=== PATIENT | male | born 1950 | race Caucasian/White ===

== ENCOUNTER 2019-06-21 21:29 | Observation (INO) ==
[2019-06-22 00:07] LABS: Prothrombin Time 11.1 Seconds (9.4-12.1)
[2019-06-22 00:08] LABS: BUN/Creatinine Ratio 23 (6-26); Blood Urea Nitrogen 25 mg/dL (8-23); Calcium 9.1 mg/dL (8.6-10.3); Carbon Dioxide 29 mEq/L (23-29); Chloride 102 mEq/L (98-107); Glucose 94 mg/dL (70-105); Osmolality,Calculated 288 (280-300); Sodium 137 mEq/L (136-145); eGFR For African Americans > 60 (> 60); eGFR For Non-African Americans > 60 (> 60)
[2019-06-22] MEDS ORDERED: *HR* Heparin 5,000 UNIT/ML VIAL IVP PRN ×2 (00:08)
[2019-06-22] MEDS ORDERED: *HR* Heparin 5,000 UNIT/ML VIAL IVP ONE (00:08)
[2019-06-22 00:10] LABS: Activated Partial Thrombo Time 32.6 Seconds (26.0-36.0)
[2019-06-22 00:11] LABS: Hematocrit 45.7 % (37.5-50.1); Hemoglobin 15.4 g/dL (12.9-16.9); Mean Corpuscular HGB Conc 33.7 g/dL (31.6-35.5); Mean Corpuscular Hemoglobin 33.3 pg (28.0-33.3); Mean Corpuscular Volume 98.7 fL (83.0-100.0); Platelet Count 148 K/mcL (140-400); Red Blood Count 4.63 M/mcL (4.19-5.50); Red Cell Distribution Width 12.4 % (11.5-14.5); White Blood Count 6.5 K/mcL (4.3-11.1)
--- NOTE | 2019-06-22 00:11 | Emergency Department Note ---
Disposition Clinical Impression: DVT (deep venous thrombosis) Qualifiers: DVT location: lower extremity Affected thrombotic vein of extremity: unspecified vein of extremity Chronicity: acute Laterality: left Qualified Code(s): I82.402 - Acute embolism and thrombosis of unspecified deep veins of left lower extremity Disposition: Admitted As Inpatient Condition: Good Referrals: Daniel Rendon MD [Primary Care Provider] - Time of Disposition: 00:15 General Adult HPI - General Chief complaint: ED Extremity Problem,Nontraumatic Stated complaint: LLE Pain/R/O DVT Time Seen by Provider: 06/21/19 23:02 Source: patient Limitations: no limitations Nursing Notes Reviewed: Yes Vital Signs Reviewed: Yes - History of Present Illness HPI Narrative: 69 year old male presents to the eD with complaintso f LLE swelling that is silmiar to his DVTs in the past which he had about 5 years ago and it required lovenox and coumadin therapy. Patinet states that hie left leg has been getting bigger over a few days and he has otherwise been experincing lightheadedness with it. PAtinet denies chest pain or shortnss of breath or hemopytosis. Patinet states he is still ambulatory but it can be uncomforatble when he walks. He has never been on oral anticoagulants in the past. DEnies fevers or cough, or abdominal pain, or nausea/vomitting. Otherwise a healthy individual that excerises everyday. No previous history of cancer. Pain Scale: 7 - Related Data Allergies Allergy/AdvReac Type Severity Reaction Status Date / Time No Known Allergies Allergy Verified 06/21/19 22:11 Constitutional: Denies: fever, chills, weakness, weight change Eyes: Denies: eye pain, eye discharge, vision change ENT ED: Denies: ear pain, throat pain, dental pain, hearing loss, epistaxis, congestion, dysphagia Cardiovascular: Denies: chest pain, palpitations, dyspnea on exertion, edema, syncope Respiratory: Denies: cough, dyspnea, wheezes, hemoptysis, stridor Gastrointestinal: Denies: abdominal pain, nausea, vomiting, diarrhea, constipation, hematemesis, melena, hematochezia Genitourinary: Denies: urgency, dysuria, frequency, hematuria Musculoskeletal: Denies: back pain, neck pain, arthralgia, myalgia Integumentary: Reports: as per HPI. Denies: rash, abrasion, lesions Neurological: Denies: headache, weakness, numbness, paresthesias, confusion, abnormal gait, vertigo Psychiatric: Denies: anxiety, depression, suicidal thoughts, homicidal thoughts, auditory hallucinations, visual hallucinations Endocrine: Denies: fatigue Hematological/Lymphatic: Denies: easy bleeding, easy bruising Allergic/Immunologic: Denies: facial swelling, urticaria Past Medical History - Past Medical History Medical history: Reports: DVT, hyperlipidemia, hypertension Psychiatric history: Reports: no psych history - Social History Smoking Status: Never smoker Smokeless Tobacco Status: No Alcohol use: Reports: occasionally Drug use: Reports: none Physical Exam - General Limitations: no limitations General appearance: alert, in no apparent distress - Head Head exam: atraumatic, normocephalic, normal inspection - Eye Eye exam: Present: normal appearance, PERRL, EOMI - Expanded Eye Exam Pupils: Left: reactive - ENT ENT exam: normal exam, normal oropharynx, mucous membranes moist - Expanded ENT Exam External ear exam: Present: normal external inspection Mouth exam: Present: normal external inspection Teeth exam: Present: normal inspection Throat exam: Present: normal inspection - Neck Neck exam: Present: normal inspection, full ROM, trachea midline - Chest Chest inspection: Present: normal inspection, symmetric chest wall rise - Respiratory Respiratory exam: Present: normal lung sounds bilaterally - Cardiovascular Cardiovascular exam: Present: regular rate, normal rhythm, normal heart sounds - Abdominal Exam Abdominal exam: Present: soft, Non-Tender. Absent: tenderness, distention, guarding, rebound, rigidity - Extremities Exam Extremities exam: Present: normal inspection, full ROM. Absent: tenderness, pedal edema - Expanded Upper Extremity Exam Shoulder exam: Present: normal inspection, full ROM Arm exam: Present: normal inspection, full ROM Elbow exam: Present: normal inspection, full ROM Forearm/Wrist exam: Present: normal inspection, full ROM Hand exam: Present: normal inspection, full ROM Vascular exam: Normal: capillary refill, radial pulse - Expanded Lower Extremity Exam Hip/Pelvis exam: Present: normal inspection, full ROM Upper leg exam: Present: normal inspection, full ROM, swelling (left) Knee exam: Present: normal inspection, full ROM Lower leg exam: Present: normal inspection, full ROM, swelling (left) Ankle exam: Present: normal inspection, full ROM Foot/toe exam: Present: normal inspection, full ROM Neurovascular/Tendon exam: Absent: motor deficit, sensory deficit, tendon deficit - Back Exam Back exam: Present: normal inspection, full ROM. Absent: tenderness - Neurological Exam Neurological exam: Present: alert, oriented X3 - Expanded Neurological Exam Patient oriented to: Present: person, place, time Coma Scale Eye Opening: Spontaneous Coma Scale Motor Response: Obeys Commands Coma Scale Verbal Response: Oriented Coma Scale Total: 15 - Psychiatric Psychiatric exam: Present: normal affect, normal mood - Skin Skin exam: Present: warm, dry, intact, normal color Course Course Narrative: It appears tht he had an US done that shows he has a Superficial femoral to popliteal complete occlusion dvt that is acute. We will admit to medicine with heparin therapy Vital Signs Temperature 98.4 F 06/21/19 21:41 Pulse Rate 52 06/21/19 21:41 Respiratory Rate 18 06/21/19 21:41 Blood Pressure 150/91 06/21/19 21:41 O2 Sat by Pulse Oximetry 98 06/21/19 21:41 Temperature 98.4 F 06/21/19 21:41 Pulse Rate 52 06/21/19 21:41 Respiratory Rate 18 06/21/19 21:41 Blood Pressure 150/91 06/21/19 21:41 O2 Sat by Pulse Oximetry 98 06/21/19 21:41 Oxygen Delivery Oxygen Delivery Room Air
[2019-06-22 00:12] LABS: Basophils % 0.5 %; Eosinophils # 0.2 K/mcL (0.0-0.6); Eosinophils % 2.9 %; Immature Granulocytes % 0.9 % (0-4); Lymphocytes % 30.5 %; Mean Platelet Volume 9.4 fL (9.4-12.4); Monocytes # 0.7 K/mcL (0.0-1.3); Monocytes % 10.6 %; Neutrophils # 3.6 K/mcL (1.6-8.9); Segmented Neutrophils % 54.6 %
[2019-06-22] MEDS ORDERED: Heparin 25,000 UNIT/250 ML D5W 25,000 UNIT/250 ML IV.SOLN IVC SCH (00:15)
[2019-06-22] MEDS ORDERED: Ondansetron ODT 4 MG TAB.RAPDIS SL PRN (01:18)
[2019-06-22] MEDS ORDERED: Acetaminophen 325 MG TABLET PO PRN (01:18)
[2019-06-22] MEDS ORDERED: Naloxone 0.4 MG/ML INJ IVP PRN (01:18)
[2019-06-22] MEDS ORDERED: *HR* HYDROcodone/Acet 5/325 mg TABLET PO PRN (01:18)
--- NOTE | 2019-06-22 01:18 | Internal Med History&Physical ---
Date of Encounter: 06/22/19 Time of Encounter: 01:18 Internal Medicine - H&P: HPI History of present illness: Mr. Nunez is a 69 year old male history of DVT who presented to the ER with a complaint of left lower extremity swelling, he denies chest pain, shortness of breath, palpitation, orthopnea, paroxysmal nocturnal dyspnea or progressive forcing of lower extremity edema. He was evaluated by the ER staff and imaging was cardiology was suggestive of acute deep venous thrombosis also left lower extremity. He was started on heparin drip and was admitted to the hospitalist service for further evaluation and management. Past Med Surg Social Fam HX - Past Medical History Medical history: DVT, hyperlipidemia, hypertension Psychiatric history: no psych history - Social History Smoking Status: Never smoker Smokeless Tobacco Status: No Alcohol use: occasionally Drug use: none Internal Medicine - H&P: Meds Atorvastatin 20 mg PO HS 06/22/19 [History] Enalapril Maleate [Vasotec] 5 mg PO DAILY 06/22/19 [History] Allergy/AdvReac Type Severity Reaction Status Date / Time No Known Allergies Allergy Verified 06/21/19 22:11 All Systems PM: A 10-system review of systems was performed and is negative for pertinent findings except as documented above in the HPI. - Constitutional Vitals: Temp Pulse Resp BP Pulse Ox 98.4 F 52 18 150/91 98 06/21/19 21:41 06/21/19 21:41 06/21/19 21:41 06/21/19 21:41 06/21/19 21:41 General appearance: Present: A&O X 3 - Head Head exam: Present: atraumatic, normocephalic - Neck Neck exam general surgery: Present: supple, trachea midline. Absent: lymphadenopathy - Respiratory Respiratory exam: Present: CTAB. Absent: accessory muscle use, rales, rhonchi, wheezes - Cardiovascular Cardiovascular exam: Present: RRR, +S1, +S2. Absent: diastolic murmur, gallop, rubs, systolic murmur - GI/Abdominal GI/Abdominal exam: Present: normal bowel sounds, soft, no peritoneal signs. Absent: distended, tenderness - Extremities Exam Extremities exam: Present: warm, radial pulses palpable and symmetrical. Absent: calf tenderness, cyanotic, pedal edema Additional comments: left lower extremity swelling Internal Med - H&P Results - Labs CBC & Chem 7: 06/21/19 23:40 06/21/19 23:40 Labs: Short CBC 06/21/19 Range/Units 23:40 WBC 6.5 (4.3-11.1) K/mcL Hgb 15.4 (12.9-16.9) g/dL Hct 45.7 (37.5-50.1) % Plt Count 148 (140-400) K/mcL Neutrophils # 3.6 (1.6-8.9) K/mcL BMP 06/21/19 23:40 Sodium 137 Potassium 4.0 Chloride 102 Carbon Dioxide 29 BUN 25 H Creatinine 1.08 Glucose 94 Calcium 9.1 - Assessment and Plan (1) DVT (deep venous thrombosis) Current Visit: Yes Status: Acute Assessment and plan: We will start the patient on heparin drip. The patient stated that he would like to discuss with her girlfriend that is a nurse his further options for long-term anticoagulation. He has a history of DVT 5 years ago he was on Coumadin for 6 months. Qualifiers: DVT location: lower extremity Affected thrombotic vein of extremity: unspecified vein of extremity Chronicity: acute Laterality: left Qualified Code(s): I82.402 - Acute embolism and thrombosis of unspecified deep veins of left lower extremity (2) Hypertension Current Visit: Yes Status: Acute Assessment and plan: We will continue to monitor blood pressure while inpatient and adjust home antihypertensive regimen if indicated (3) Hyperlipidemia Current Visit: Yes Status: Acute Assessment and plan: Cont statin Qualifiers: Qualified Code(s): E78.5 - Hyperlipidemia, unspecified - Time Spent With Patient Total time spent is greater than 50% in coordination of care (as documented) at patient's floor/unit and/or counseling patient:
[2019-06-22 04:27] LABS: Bilirubin,Urine Negative (Negative); Blood,Urine Negative (Negative); Clarity,Urine Clear (Clear); Color,Urine Yellow (Yellow); Glucose,Urine (UA) Normal (Normal); Ketones,Urine Negative (Negative); Leukocyte Esterase,Urine Negative (Negative); Nitrite,Urine Negative (Negative); PH,Urine 6.5 pH Units (5.0-8.0); Protein,Urine Negative (Neg-Trace); Specific Gravity,Urine 1.009 (1.010-1.025); Urobilinogen,Urine Normal (Normal)
[2019-06-22 07:54] LABS: Hematocrit 43.1 % (37.5-50.1); Hemoglobin 14.8 g/dL (12.9-16.9); Mean Corpuscular HGB Conc 34.3 g/dL (31.6-35.5); Mean Corpuscular Hemoglobin 32.7 pg (28.0-33.3); Mean Corpuscular Volume 95.1 fL (83.0-100.0); Mean Platelet Volume 9.8 fL (9.4-12.4); Platelet Count 141 K/mcL (140-400); Red Blood Count 4.53 M/mcL (4.19-5.50); Red Cell Distribution Width 12.3 % (11.5-14.5); White Blood Count 6.1 K/mcL (4.3-11.1)
[2019-06-22 09:40] LABS: Alanine Aminotransferase 15 Units/L (7-52); Albumin 3.9 g/dL (3.5-5.7); Albumin/Globulin Ratio 1.5 (1.1-2.2); Alkaline Phosphatase 70 Units/L (34-104); Aspartate Amino Transferase 19 Units/L (13-39); BUN/Creatinine Ratio 19 (6-26); Blood Urea Nitrogen 18 mg/dL (8-23); Calcium 9.5 mg/dL (8.6-10.3); Carbon Dioxide 28 mEq/L (23-29); Chloride 102 mEq/L (98-107); Chol/HDL Ratio 3.4 (0-4.9); Cholesterol 162 mg/dL (< 200); Globulin 2.6 g/dL (2.4-3.5); Glucose 97 mg/dL (70-105); HDL Cholesterol 47 mg/dL (40-59); LDL Cholesterol,Calculated 103 mg/dL (0-99); Magnesium 1.8 mg/dL (1.6-2.6); Osmolality,Calculated 294 (280-300); Phosphorous 2.6 mg/dL (2.7-4.5); Potassium 4.1 mEq/L (3.5-5.1); Sodium 141 mEq/L (136-145); Total Protein 6.5 g/dL (6.4-8.9); Triglycerides 61 mg/dL (< 150); eGFR For African Americans > 60 (> 60); eGFR For Non-African Americans > 60 (> 60)
[2019-06-22 09:53] LABS: Heparin anti-factor XA UFH 0.96 IU/mL (0.30-0.70); INR 1.1; Prothrombin Time 12.1 Seconds (9.4-12.1)
[2019-06-22 10:10] LABS: Activated Partial Thrombo Time 158.3 Seconds (26.0-36.0)
[2019-06-22] MEDS ORDERED: *HR* Warfarin 5 MG TABLET PO ONE (11:11)
[2019-06-22 11:30] VITALS: BP 135/81
[2019-06-22] MEDS ORDERED: *HR* Enoxaparin 120 MG/0.8 ML SYRINGE SQ SCH (11:30)
--- NOTE | 2019-06-22 11:30 | Discharge Summary ---
- NOTES TO OUTPATIENT PROVIDER Notes to Outpatient Provider: Follow-up with hematology service as this is the second unprovoked DVT. Follow-up is on age appropriate cancer screening including prostate cancer. Orders not resulted at time of discharge: Pending orders 06/22/19 13:30 Heparin anti-factor XA UFH [COAG] Stat 06/23/19 04:00 PT/INR [Prothrombin Time INR] [COAG] AM 0400 06/24/19 04:00 PT/INR [Prothrombin Time INR] [COAG] AM 0400 06/25/19 04:00 PT/INR [Prothrombin Time INR] [COAG] AM 040 Date of Encounter: 06/22/19 Time of Encounter: 09:00 - Discharge Diagnosis (1) DVT (deep venous thrombosis) Priority: Primary Status: Acute Qualifiers: DVT location: lower extremity Affected thrombotic vein of extremity: femoral Chronicity: acute Laterality: left Qualified Code(s): I82.412 - Acute embolism and thrombosis of left femoral vein (2) Hypertension Priority: Secondary Status: Acute Qualifiers: Hypertension type: essential hypertension Qualified Code(s): I10 - Essential (primary) hypertension (3) Hyperlipidemia Priority: Secondary Status: Acute Qualifiers: Qualified Code(s): E78.5 - Hyperlipidemia, unspecified Hospital course: Mr. Nunez is a 69 year old male with history of unprovoked DVT, HLD, HTN who came into the hospital for left leg pain. His left lower extremity Doppler revealed acute DVT in distal SFV, popliteal, PTV and eloise veins. Patient denied any recent history of surgery or hospitalization. He had no recent long trip or travel. He does not smoke and he does not have any active cancer. He denied any family history of blood clots. His previous DVT was also unprovoked and it was treated with Coumadin for 6 month 3 years ago. Patient was placed on heparin drip. Given options at discharge, patient preferred to go home on Coumadin and Lovenox bridge due to cost issues. I discussed this extensively with him and with the pharmacist and patient will be referred to anticoagulation clinic. I recommended the patient to follow up with hematology/oncology clinic as this is his 2 nd unprovoked clot. Today, patient is clinically and hemodynamically stable. He denied chest pain or shortness of breath. He will be discharged home in stable condition. His leg pain improved significantly and he is able to walk independently. Discharge discussed with: patient - Time Spent with Patient Total time spent providing and/or coordinating discharge services:45 minutes - Discharge Medications Prescriptions: New Enoxaparin [Lovenox] 120 mg SQ Q24H syringe Warfarin perPT [Coumadin perPT] 1 each PO DAILY@1800 PRN each PRN Reason: See Comments Continued Enalapril Maleate [Vasotec] 5 mg PO DAILY Atorvastatin 20 mg PO HS Home Medications: Atorvastatin 20 mg PO HS 06/22/19 [History] Enalapril Maleate [Vasotec] 5 mg PO DAILY 06/22/19 [History] Enoxaparin [Lovenox] 120 mg SQ Q24H syringe 06/22/19 [Rx] Warfarin perPT [Coumadin perPT] 1 each PO DAILY@1800 PRN each 06/22/19 [Rx] Allergies/Adverse Reactions: Allergy/AdvReac Type Severity Reaction Status Date / Time No Known Allergies Allergy Verified 06/21/19 22:11 Date of admission: 06/22/19 01:03 Primary care physician: Daniel Rendon MD Consults: 06/22/19 02:24 Consult to Pastoral Services [CONS] Routine Comment: - Constitutional Vitals: Temp Pulse Resp BP Pulse Ox 98 F 53 17 126/73 97 06/22/19 08:28 06/22/19 08:28 06/22/19 08:28 06/22/19 08:28 06/22/19 08:28 General appearance: Present: A&O X 3 Exam: General: Patient is alert, oriented 3. Head: Atraumatic, normal inspection, normocephalic. Eye: EOMI, PERRLA, no scleral icterus noted. ENT: Mucous membranes moist. No odontogenic infection noted. Neck: Normal inspection, no meningismus. Respiratory: No respiratory distress, rhonchi, or wheezes noted. Cardiovascular: Regular rate and regular rhythm, S1 and S2 audible. No murmurs, rubs, or gallops. GI: Soft, nondistended, normal bowel sounds. Extremities:No joint swelling, pedal edema, or tenderness noted. Neurological: Alert, oriented 3, no focal deficits. Psychiatric: normal affect, normal mood. Skin: Dry, intact, warm. Normal color. No rashes. - Patient Status Disposition: Home, Self-Care Functional capacity at discharge: independent ambulation Overall status at discharge: patient is back to baseline - Discharge Instructions Follow Up With: Daniel Rendon MD [Primary Care Provider] - - Diet and Activity Activity: resume usual activities as tolerated (after leg pain improves. No machines work up until leg pain resolves.) Diet: low salt diet
[2019-06-22] MEDS ORDERED: Warfarin perPT PO PRN (18:00)
== END 2019-06-22 14:55 | disposition home or self-care (01) ==
LOC: EMEROOARM 21:29 → 2ANU 21:29
PROVIDERS: ADMIT Internal Medicine Nephrology; ATTEND Internal Medicine Nephrology